=== PATIENT | female | born 1985 | race African-American/Black ===

== ENCOUNTER 2020-10-17 12:45 | Emergency (ER) | payer BC ==
[2020-10-17 13:44] LABS: Bilirubin Neg (Negative); Blood, Urine 150 (Negative); Clarity Slightly Cloudy (Clear); Glucose, Urine (Dipstick) Normal (Negative); Ketone, Urine 15 mg/dL (Negative); Leukocyte 500 (Negative); Nitrite Negative (Negative); Protein, Urine (Dipstick) 100 mg/dl (Neg-Trace); Urobilinogen Normal mg/dL (Less than 2); pH, Urine 6.5 (5.0-9.0)
[2020-10-17 14:04] LABS: Bacteria/HPF 3+ HPF (None Seen); Squamous Epithelial 0-3 HPF (0-3); WBC/HPF 21-50 HPF (0-3)
[2020-10-17] MEDS ORDERED: Ketorolac Tromethamine 30 MG/ML VIAL ONE (14:35)
== END 2020-10-17 14:48 | disposition home or self-care (01) ==
LOC: CSHERS 12:45
DX: N39.0 Urinary tract infection, site not specified (principal); F17.210 Nicotine dependence, cigarettes, uncomplicated
CPT/HCPCS: 81003; 81015; 96372; 99283; J1885

== ENCOUNTER 2022-07-29 11:54 | Emergency (ER) | payer SELFPAY ==
[2022-07-29] MEDS ORDERED: Boostrix 0.5 ML (Tdap) VIAL (>/=7 yrs of age) ONE (12:24)
== END 2022-07-29 14:18 | disposition home or self-care (01) ==
LOC: CSHERS 11:54
DX: S60.031A Contusion of right middle finger without damage to nail, initial encounter (principal); F17.210 Nicotine dependence, cigarettes, uncomplicated; W23.0XXA Caught, crushed, jammed, or pinched between moving objects, initial encounter
CPT/HCPCS: 90471; 90715

== ENCOUNTER 2022-10-08 07:48 | Emergency (ER) | payer SELFPAY ==
[2022-10-08] MEDS ORDERED: Ketorolac Tromethamine 30 MG/ML VIAL ONE (08:40)
[2022-10-08] MEDS ORDERED: Dexamethasone 10 MG/ML VIAL ONE (09:17)
== END 2022-10-08 09:32 | disposition home or self-care (01) ==
LOC: CSHERS 07:48
DX: M54.12 Radiculopathy, cervical region (principal); M25.511 Pain in right shoulder; F17.200 Nicotine dependence, unspecified, uncomplicated
CPT/HCPCS: 96372; 99283; J1100; J1885